=== PATIENT | male | born 1935 | race Caucasian/White ===

== ENCOUNTER 2018-09-13 08:02 | Day surgery (SDC) | payer MEDICARE ==
[~2018-09-13] VITALS: Ht 170.2 cm; Wt 63.5 kg
[2018-09-13] VITALS (8 sets, daily range): BP systolic 101–130; BP diastolic 56–81
[~2018-09-13 08:02] MED LIST: ASPI-1197 PO; ATOR40TA71 PO; CETI10CA8 PO; IRON PO; METO25TA6 PO; SODIUM CHLORIDE 0.9% 1000ML 1,000 ML IV ONE; TRIA1TAB3 PO; TYLENOL PM PO; VITAMIN B12 PO; WARF-57 PO
[2018-09-13] MEDS ORDERED: FERR-82 PO (08:42)
[2018-09-13] MEDS ORDERED: METO50TA18 PO (08:42)
[2018-09-13] MEDS ORDERED: ATOR20TA65 PO (08:42)
[2018-09-13] MEDS ORDERED: APIX2.5T PO (08:42)
[2018-09-13] MEDS ORDERED: PROPOFOL 10 MG/ML 20ML VIAL IV ONE (10:14)
[2018-09-13] MEDS ORDERED: EPHEDRINE SULFATE 50 MG/ML AMPULE ONE (10:29)
[2018-09-13] MEDS ORDERED: PHENYLEPHRINE HCL 10 MG/ML 1ML VIAL IV ONE (10:45)
== END 2018-09-13 11:50 | disposition home or self-care (01) ==
LOC: ENDO 08:02 → DAH 08:02 → ENDO 11:50
PROVIDERS: ATTEND Internal Medicine
DX: D12.0 Benign neoplasm of cecum (principal); D12.3 Benign neoplasm of transverse colon; D12.2 Benign neoplasm of ascending colon; K57.30 Diverticulosis of large intestine without perforation or abscess without bleeding; K29.50 Unspecified chronic gastritis without bleeding; K44.9 Diaphragmatic hernia without obstruction or gangrene; K20.9 Esophagitis, unspecified; K31.89 Other diseases of stomach and duodenum; D50.9 Iron deficiency anemia, unspecified; R12 Heartburn; K64.0 First degree hemorrhoids; E78.5 Hyperlipidemia, unspecified; I25.10 Atherosclerotic heart disease of native coronary artery without angina pectoris; Z79.01 Long term (current) use of anticoagulants; Z79.899 Other long term (current) drug therapy; Z85.828 Personal history of other malignant neoplasm of skin; Z95.0 Presence of cardiac pacemaker; Z98.890 Other specified postprocedural states
CPT/HCPCS: 43239; 45380; 45381; 45385; 88305; 88342; 93005; A4606; J2370; J2704; J3490; J7030; 45384

== ENCOUNTER → 2019-01-19 | Outpatient (CLI) | payer MEDICARE ==
[~2019-01-19] MED LIST changes: +ALLERGY RELIEF; +APIX2.5T PO; -ASPI-1197 PO; +ATOR20TA65 PO; -ATOR40TA71 PO; -CETI10CA8 PO; +FERR-82 PO; -IRON PO; -METO25TA6 PO; +METO50TA18 PO; -SODIUM CHLORIDE 0.9% 1000ML 1,000 ML IV ONE; -TYLENOL PM PO; -WARF-57 PO
== END | disposition home or self-care (01) ==
LOC: RAH 08:42
PROVIDERS: ATTEND Nurse Practitioner Adult Health
DX: N64.4 Mastodynia (principal); N63.10 Unspecified lump in the right breast, unspecified quadrant
CPT/HCPCS: 76641

== ENCOUNTER 2019-02-10 07:56 | Day surgery (SDC) | payer MEDICARE ==
[~2019-02-10] VITALS: Ht 170.2 cm; Wt 64.4 kg
[~2019-02-10 07:56] MED LIST changes: -METO50TA18 PO; +SODIUM CHLORIDE 0.9% 1000ML 1,000 ML IV ONE
[2019-02-10 08:57] VITALS: BP 114/61
[2019-02-10] MEDS ORDERED: PROPOFOL 10 MG/ML 20ML VIAL IV ONE (10:43)
[2019-02-10 11:10] VITALS: BP 96/49
[2019-02-10 11:15] VITALS: BP 99/57
[2019-02-10 11:20] VITALS: BP 101/58
[2019-02-10 11:25] VITALS: BP 103/58
[2019-02-10 11:30] VITALS: BP 107/57
== END 2019-02-10 11:35 | disposition home or self-care (01) ==
LOC: ENDO 07:56 → DAH 07:56 → ENDO 11:35
PROVIDERS: ATTEND Internal Medicine Gastroenterology
DX: D12.2 Benign neoplasm of ascending colon (principal); K62.0 Anal polyp; K57.30 Diverticulosis of large intestine without perforation or abscess without bleeding; K64.0 First degree hemorrhoids; K44.9 Diaphragmatic hernia without obstruction or gangrene; E78.5 Hyperlipidemia, unspecified; I25.10 Atherosclerotic heart disease of native coronary artery without angina pectoris; D50.9 Iron deficiency anemia, unspecified; Z79.01 Long term (current) use of anticoagulants; Z79.899 Other long term (current) drug therapy; Z85.828 Personal history of other malignant neoplasm of skin; Z90.49 Acquired absence of other specified parts of digestive tract; Z95.0 Presence of cardiac pacemaker
CPT/HCPCS: 45380; 45385; 88305; A4215; A4221; A4222; A4223; A4606; A4615; A4663; J2704; J7030

== ENCOUNTER → 2020-01-05 | Outpatient (CLI) | payer MEDICARE ==
[~2020-01-05] MED LIST changes: -SODIUM CHLORIDE 0.9% 1000ML 1,000 ML IV ONE
== END | disposition home or self-care (01) ==
LOC: SHCH 14:01
PROVIDERS: ATTEND Internal Medicine Cardiovascular Disease
DX: R06.02 Shortness of breath (principal)
CPT/HCPCS: 93306; 93356

== ENCOUNTER 2021-07-24 20:58 | Emergency (ER) | payer MEDICARE ==
[~2021-07-24] VITALS: Ht 167.6 cm; Wt 65.8 kg
[~2021-07-24 20:58] MED LIST changes: +DOCU100C33 PO; -FERR-82 PO; +FERR324T12 PO; +LIDOP TP
[2021-07-24 21:27] VITALS: BP 112/57
[2021-07-24] MEDS ORDERED: ACETAMINOPHEN 500 MG TABLET PO ONE (22:00)
[2021-07-24] MEDS ORDERED: CLINDAMYCIN 150 MG CAP PO ONE (22:00)
[2021-07-24 22:11] LABS: BASOPHILS % (AUTO) 0.5 % (0.0-5.0); EOSINOPHILS % (AUTO) 3.6 % (0.0-8.0); HEMATOCRIT 34.3 % (42-54); LYMPHOCYTES % (AUTO) 10.7 % (21.0-51.0); MEAN CORPUSCULAR HEMOGLOBIN 27.4 pg (27.0-33.0); MEAN CORPUSCULAR HGB CONC 32.4 g/dL (32.0-36.0); MEAN CORPUSCULAR VOLUME 84.7 fL (79-99); MONOCYTES % (AUTO) 11.9 % (3.0-13.0); NEUTROPHILS % (AUTO) 72.8 % (40.0-77.0); PLATELET COUNT (AUTO) 210 K/uL (130-400); RED BLOOD CELL COUNT(AUTO) 4.05 MIL/uL (4.50-6.20); RED CELL DISTRIBUTION WIDTH 13.9 % (11.0-15.5); WHITE BLOOD COUNT (AUTO) 9.2 K/uL (4.8-10.8)
[2021-07-24 22:28] LABS: CREATININE 1.6 mg/dL (0.5-1.5)
[2021-07-24] MEDS ORDERED: CEPHALEXIN 500 MG CAPSULE ONE (22:28)
[2021-07-24 22:32] LABS: ALBUMIN 3.6 g/dL (3.5-5.0); BILIRUBIN,TOTAL 1.6 mg/dL (0.2-1.0); TOTAL PROTEIN, SERUM 7.4 g/dL (6.0-8.3)
[2021-07-24] MEDS ORDERED: ACET-2247 PO (23:19)
[2021-07-24] MEDS ORDERED: CEPH500B PO (23:19)
== END 2021-07-24 23:44 | disposition home or self-care (01) ==
LOC: EDH 20:58
DX: S80.12XA Contusion of left lower leg, initial encounter (principal); L03.116 Cellulitis of left lower limb; N28.9 Disorder of kidney and ureter, unspecified; E11.9 Type 2 diabetes mellitus without complications; I10 Essential (primary) hypertension; I25.10 Atherosclerotic heart disease of native coronary artery without angina pectoris; Z79.01 Long term (current) use of anticoagulants; Z79.899 Other long term (current) drug therapy; Z90.49 Acquired absence of other specified parts of digestive tract; Z95.0 Presence of cardiac pacemaker; Z95.1 Presence of aortocoronary bypass graft; W18.39XA Other fall on same level, initial encounter; Y93.89 Activity, other specified; Y92.89 Other specified places as the place of occurrence of the external cause; Y99.8 Other external cause status
CPT/HCPCS: 36415; 73590; 80053; 83605; 85025; 93971

== ENCOUNTER → 2021-08-22 | Outpatient (CLI) | payer MEDICARE ==
[~2021-08-22] MED LIST changes: +ACET-2247 PO; +CEPH500B PO
== END | disposition home or self-care (01) ==
LOC: RAH 10:09
PROVIDERS: ATTEND Nurse Practitioner Adult Health
DX: J44.9 Chronic obstructive pulmonary disease, unspecified (principal); R06.02 Shortness of breath; J90 Pleural effusion, not elsewhere classified
CPT/HCPCS: 71046

== ENCOUNTER → 2021-09-04 | Outpatient (CLI) | payer MEDICARE ==
[2021-09-04 12:43] LABS: APPEARANCE,URINE Clear (CLEAR); BILIRUBIN,URINE Negative (NEGATIVE); COLOR,URINE Yellow (YELLOW); GLUCOSE, URINE (UA) Negative (NEGATIVE); KETONES,URINE Negative (NEGATIVE); LEUKOCYTE ESTERASE ,URINE Negative (NEGATIVE); NITRATE,URINE Negative (NEGATIVE); OCCULT BLOOD,URINE Negative (NEGATIVE); PH,URINE 5.5 (5.0-8.0); PROTEIN,URINE POS 1+ mg/dL (NEGATIVE)
[2021-09-04 12:58] LABS: T4 (THYROXINE) 10.7 ug/dL (4.7-13.3); THYROID STIMULATING HORMONE 3.6 uIU/mL (0.36-3.74)
[2021-09-04 13:09] LABS: RBC,URINE 0-1 /HPF (0-1); WBC,URINE 0-1 /HPF (0-1)
[2021-09-04 13:10] LABS: BACTERIA,URINE None Seen /HPF (None Seen); COARSE GRANULAR CASTS,URINE 0-2 /LPF (None Seen); SQUAMOUS EPITHELIAL CELL,UR 0-2 /HPF (0-2)
== END | disposition home or self-care (01) ==
LOC: LAB 08:48
PROVIDERS: ATTEND Internal Medicine Cardiovascular Disease
DX: I48.0 Paroxysmal atrial fibrillation (principal); I10 Essential (primary) hypertension; I50.32 Chronic diastolic (congestive) heart failure
CPT/HCPCS: 36415; 81001; 83880; 84436; 84443

== ENCOUNTER → 2022-03-10 | Outpatient (CLI) | payer MEDICARE ==
[~2022-03-10] MED LIST changes: -ACET-2247 PO; -ALLERGY RELIEF; +ALLERGY RELIEF PO; -CEPH500B PO; +ERGO400C PO; -LIDOP TP; +OMEP40CA21 PO; -TRIA1TAB3 PO
[2022-03-10 13:12] LABS: CREATININE 1.8 mg/dL (0.5-1.5); POTASSIUM 4.3 mmol/L (3.5-5.1)
== END | disposition home or self-care (01) ==
LOC: LAB 10:33
PROVIDERS: ATTEND Internal Medicine Cardiovascular Disease
DX: I50.32 Chronic diastolic (congestive) heart failure (principal)
CPT/HCPCS: 36415; 80048; 83880

== ENCOUNTER 2022-03-24 15:30 | Emergency (ER) | payer MEDICARE ==
[~2022-03-24] VITALS: Ht 152.4 cm; Wt 59.0 kg
[2022-03-24 17:22] VITALS: BP 159/71
== END 2022-03-24 17:22 | disposition home or self-care (01) ==
LOC: EDH 15:30
DX: S09.90XA Unspecified injury of head, initial encounter (principal); S41.112A Laceration without foreign body of left upper arm, initial encounter; E78.00 Pure hypercholesterolemia, unspecified; I48.91 Unspecified atrial fibrillation; Z79.01 Long term (current) use of anticoagulants; Z95.1 Presence of aortocoronary bypass graft; Z95.810 Presence of automatic (implantable) cardiac defibrillator; Z90.49 Acquired absence of other specified parts of digestive tract; W18.39XA Other fall on same level, initial encounter; Y93.89 Activity, other specified; Y92.89 Other specified places as the place of occurrence of the external cause; Y99.8 Other external cause status
CPT/HCPCS: 70450; 72125

== ENCOUNTER 2022-07-25 08:37 | Inpatient (IN) | payer MEDICARE ==
[~2022-07-25] VITALS: Ht 167.6 cm; Wt 61.4 kg
[2022-07-25 09:01] LABS: BASOPHILS % (AUTO) 0.3 % (0.0-5.0); EOSINOPHILS % (AUTO) 0.1 % (0.0-8.0); HEMATOCRIT 37.6 % (42-54); LYMPHOCYTES % (AUTO) 7.7 % (21.0-51.0); MEAN CORPUSCULAR HEMOGLOBIN 27.9 pg (27.0-33.0); MEAN CORPUSCULAR HGB CONC 32.2 g/dL (32.0-36.0); MEAN CORPUSCULAR VOLUME 86.6 fL (79-99); MONOCYTES % (AUTO) 8.2 % (3.0-13.0); NEUTROPHILS % (AUTO) 83.3 % (40.0-77.0); PLATELET COUNT (AUTO) 162 K/uL (130-400); RED BLOOD CELL COUNT(AUTO) 4.34 MIL/uL (4.50-6.20); RED CELL DISTRIBUTION WIDTH 14.5 % (11.0-15.5); WHITE BLOOD COUNT (AUTO) 9.2 K/uL (4.8-10.8)
[2022-07-25 09:22] LABS: CREATININE 1.9 mg/dL (0.5-1.5); POTASSIUM 3.6 mmol/L (3.5-5.1)
[2022-07-25 09:28] LABS: TOTAL PROTEIN, SERUM 6.8 g/dL (6.0-8.3)
[2022-07-25] MEDS ORDERED: CEFTRIAXONE 1G VIAL IVPB ONE (11:30)
[2022-07-25] MEDS ORDERED: AZITHROMYCIN 500MG+NS 250ML IVPB SCH (11:30)
[2022-07-25] MEDS: BUDESONIDE 0.5 MG/2 ML INH IH SCH ×2 (12:00→15:41)
[2022-07-25] MEDS ORDERED: PANTOPRAZOLE 40 MG TAB DR PO SCH (12:00)
[2022-07-25 12:18] LABS: INR 1.01 (0.85-1.15)
[2022-07-25 12:20] LABS: PARTIAL THROMBOPLASTIN TIME 35.5 SEC (26.3-35.5)
[2022-07-25 12:22] LABS: HEMOGLOBIN A1C 5.1 % (4.0-6.0)
[2022-07-25] MEDS ORDERED: ACETAMINOPHEN 500 MG TABLET PO PRN (12:30)
[2022-07-25] MEDS ORDERED: ONDANSETRON 4MG INJ IVP PRN (12:30)
[2022-07-25] MEDS ORDERED: Vitamin B Complex/Vit C/Folic Acid PO SCH (12:30)
[2022-07-25 12:38] LABS: CRP QUANTITATIVE 104.9 mg/L (0.00-9.0); THYROID STIMULATING HORMONE 3.07 uIU/mL (0.36-3.74)
[2022-07-25] MEDS ORDERED: TORS20TA4 PO (13:31)
[2022-07-25] MEDS ORDERED: SERT-438 PO (13:32)
[2022-07-25] MEDS: CEFEPIME HCL 2 GM VIAL IVPB SCH (13:43)
[2022-07-25] MEDS ORDERED: SODIUM CHLORIDE 3% FOR INHALATION 4 ML/AMP VIAL.NEB IH ONE ×2 (14:56→18:38)
[2022-07-25 15:22] LABS: ABG BASE EXCESS 0.2 mmol/L (-2.0-3.0); ABG HCO3 23.7 mmol/L (21.0-28.0); ABG OXYGEN SATURATION 98.5 % (95.0-99.0); ABG PCO2 35 mmHg (35-48)
[2022-07-25] MEDS: SOLU-MEDROL 40MG VIAL IVP SCH ×2 (15:30→21:52)
[2022-07-25] MEDS: IPRATROPIUM 0.5 MG/2.5 ML INH IH PRN ×2 (15:40→19:43)
[2022-07-25 16:21] VITALS: BP 114/67
[2022-07-25 19:06] VITALS: BP 99/58
[2022-07-25] MEDS: APIXABAN 2.5 MG TABLET PO SCH (21:52)
[2022-07-25] MEDS: SERTRALINE HCL 50 MG TABLET PO SCH (21:52)
[2022-07-25] MEDS: ATORVASTATIN 40 MG TABLET PO SCH (21:52)
[2022-07-26 00:06] VITALS: BP 114/71
[2022-07-26 03:06] VITALS: BP 119/67
[2022-07-26 04:12] LABS: BASOPHILS % (AUTO) 0.2 % (0.0-5.0); HEMATOCRIT 37.9 % (42-54); LYMPHOCYTES % (AUTO) 8.1 % (21.0-51.0); MEAN CORPUSCULAR HEMOGLOBIN 27.6 pg (27.0-33.0); MEAN CORPUSCULAR HGB CONC 31.1 g/dL (32.0-36.0); MEAN CORPUSCULAR VOLUME 88.6 fL (79-99); MONOCYTES % (AUTO) 2.7 % (3.0-13.0); NEUTROPHILS % (AUTO) 88.5 % (40.0-77.0); PLATELET COUNT (AUTO) 151 K/uL (130-400); RED BLOOD CELL COUNT(AUTO) 4.28 MIL/uL (4.50-6.20); RED CELL DISTRIBUTION WIDTH 14.2 % (11.0-15.5); WHITE BLOOD COUNT (AUTO) 4.1 K/uL (4.8-10.8)
[2022-07-26 04:24] LABS: ALBUMIN 2.8 g/dL (3.5-5.0); CREATININE 1.7 mg/dL (0.5-1.5); CRP QUANTITATIVE 79.4 mg/L (0.00-9.0); MAGNESIUM 2.3 mg/dL (1.80-2.40); POTASSIUM 3.9 mmol/L (3.5-5.1); TOTAL PROTEIN, SERUM 6.4 g/dL (6.0-8.3)
[2022-07-26] MEDS: BUDESONIDE 0.5 MG/2 ML INH IH SCH ×2 (07:01→19:27)
[2022-07-26 07:34] VITALS: BP 119/68
[2022-07-26] MEDS: APIXABAN 2.5 MG TABLET PO SCH ×2 (08:18→20:40)
[2022-07-26] MEDS: DOCUSATE SODIUM 100 MG CAP PO SCH (08:18)
[2022-07-26] MEDS: PANTOPRAZOLE 40 MG TAB DR PO SCH (08:18)
[2022-07-26] MEDS: CHOLECALCIFEROL 1000 MG PO SCH (08:18)
[2022-07-26] MEDS: FERROUS FUMARATE 324 MG TABLET PO SCH (08:18)
[2022-07-26] MEDS: SOLU-MEDROL 40MG VIAL IVP SCH ×2 (08:18→20:40)
[2022-07-26] MEDS: AZITHROMYCIN 250 MG TABLET PO SCH (08:18)
[2022-07-26] MEDS: CYANOCOBALAMIN (VITAMIN B-12) 1,000 MCG TABLET PO SCH (08:18)
[2022-07-26] MEDS: Vitamin B Complex/Vit C/Folic Acid PO SCH (08:18)
[2022-07-26] MEDS ORDERED: ENOXAPARIN SODIUM 30 MG/0.3 ML SQ SCH (09:00)
[2022-07-26] MEDS ORDERED: FUROSEMIDE 20MG VIAL IV SCH (09:30)
[2022-07-26] MEDS: CEFEPIME HCL 2 GM VIAL IVPB SCH (11:29)
[2022-07-26] MEDS: FUROSEMIDE 20MG VIAL IV SCH ×2 (11:30→20:54)
[2022-07-26 11:33] VITALS: BP 107/53
[2022-07-26] MEDS: IPRATROPIUM 0.5 MG/2.5 ML INH IH SCH ×3 (12:09→23:42)
[2022-07-26] MEDS ORDERED: ALBUTEROL 0.083% 2.5 MG/3 ML INH IH SCH (14:00)
[2022-07-26 15:38] VITALS: BP 103/60
[2022-07-26] MEDS ORDERED: GUAIFENESIN-DM 200/20 MG 10 ML PO PRN (17:30)
[2022-07-26] MEDS: ALBUTEROL 0.083% 2.5 MG/3 ML INH IH SCH ×2 (18:59→23:42)
[2022-07-26 19:06] VITALS: BP 94/49
[2022-07-26] MEDS: ATORVASTATIN 40 MG TABLET PO SCH (20:40)
[2022-07-26] MEDS: SERTRALINE HCL 50 MG TABLET PO SCH (20:41)
[2022-07-27] VITALS (8 sets, daily range): BP systolic 93–117; BP diastolic 53–66
[2022-07-27 05:00] LABS: CREATININE 2.2 mg/dL (0.5-1.5); POTASSIUM 3.1 mmol/L (3.5-5.1)
[2022-07-27] MEDS ORDERED: KCL 20 MEQ ERTAB PO PRN (06:00)
[2022-07-27] MEDS ORDERED: MAGNESIUM 2GM PREMIX 50ML 50 ML IV SCH (06:00)
[2022-07-27] MEDS ORDERED: POTASSIUM CHLORIDE 10MEQ/100ML 100 ML IV PRN (06:00)
[2022-07-27] MEDS: POTASSIUM CHLORIDE 10% ELIXIR 20 MEQ/15 ML UDCUP PO PRN ×3 (06:21→11:37)
[2022-07-27] MEDS: ALBUTEROL 0.083% 2.5 MG/3 ML INH IH SCH ×3 (06:54→19:34)
[2022-07-27] MEDS: BUDESONIDE 0.5 MG/2 ML INH IH SCH ×2 (06:55→19:35)
[2022-07-27] MEDS: IPRATROPIUM 0.5 MG/2.5 ML INH IH SCH ×3 (06:55→19:35)
[2022-07-27] MEDS: CHOLECALCIFEROL 1000 MG PO SCH (09:00)
[2022-07-27] MEDS: SOLU-MEDROL 40MG VIAL IVP SCH ×2 (09:41→21:12)
[2022-07-27] MEDS: FERROUS FUMARATE 324 MG TABLET PO SCH (09:41)
[2022-07-27] MEDS: Vitamin B Complex/Vit C/Folic Acid PO SCH (09:41)
[2022-07-27] MEDS: PANTOPRAZOLE 40 MG TAB DR PO SCH (09:41)
[2022-07-27] MEDS: APIXABAN 2.5 MG TABLET PO SCH ×2 (09:41→21:11)
[2022-07-27] MEDS: CYANOCOBALAMIN (VITAMIN B-12) 1,000 MCG TABLET PO SCH (09:41)
[2022-07-27] MEDS: DOCUSATE SODIUM 100 MG CAP PO SCH (09:42)
[2022-07-27] MEDS: FUROSEMIDE 20MG VIAL IV SCH (09:42)
[2022-07-27] MEDS: AZITHROMYCIN 250 MG TABLET PO SCH (09:42)
[2022-07-27] MEDS: CEFEPIME HCL 2 GM VIAL IVPB SCH (11:37)
[2022-07-27] MEDS: ATORVASTATIN 40 MG TABLET PO SCH (21:00)
[2022-07-27] MEDS: SERTRALINE HCL 50 MG TABLET PO SCH (21:00)
[2022-07-28] MEDS: IPRATROPIUM 0.5 MG/2.5 ML INH IH SCH ×5 (00:21→23:57)
[2022-07-28] MEDS: ALBUTEROL 0.083% 2.5 MG/3 ML INH IH SCH ×5 (00:21→23:57)
[2022-07-28 04:33] VITALS: BP 107/58
[2022-07-28] MEDS: BUDESONIDE 0.5 MG/2 ML INH IH SCH ×2 (06:56→19:59)
[2022-07-28 08:00] VITALS: BP 104/53
[2022-07-28] MEDS ORDERED: TORS20TA4 PO (08:25)
[2022-07-28 08:30] LABS: APPEARANCE,URINE CLEAR (CLEAR); BILIRUBIN,URINE NEGATIVE (NEGATIVE); COLOR,URINE LIGHT-YELLOW (YELLOW); GLUCOSE, URINE (UA) NEGATIVE (NEGATIVE); KETONES,URINE NEGATIVE (NEGATIVE); LEUKOCYTE ESTERASE ,URINE NEGATIVE Leu/uL (NEGATIVE); NITRATE,URINE NEGATIVE (NEGATIVE); OCCULT BLOOD,URINE SMALL (NEGATIVE); PH,URINE 5.5 (5.0-8.0); PROTEIN,URINE 30 mg/dL (NEGATIVE); UROBILINOGEN,URINE 0.2 mg/dL (0.2-1.0)
[2022-07-28 08:33] LABS: CREATININE,URINE RANDOM 84 mg/dL (30-135); SODIUM,URINE RANDOM < 14 mmol/l (40-220)
[2022-07-28 08:36] LABS: BACTERIA,URINE RARE /HPF (None Seen); MUCUS,URINE RARE LPF (None Seen); OTHER CASTS, URINE 1 /LPF (None Seen); SQUAMOUS EPITHELIAL CELL,UR RARE /HPF (0-2); WBC,URINE 0-1 /HPF (0-1)
[2022-07-28] MEDS: SOLU-MEDROL 40MG VIAL IVP SCH ×2 (08:43→20:42)
[2022-07-28] MEDS: CYANOCOBALAMIN (VITAMIN B-12) 1,000 MCG TABLET PO SCH (09:00)
[2022-07-28] MEDS: TORSEMIDE 20 MG TAB PO SCH (09:00)
[2022-07-28] MEDS: AZITHROMYCIN 250 MG TABLET PO SCH (09:00)
[2022-07-28] MEDS: CHOLECALCIFEROL 1000 MG PO SCH (09:00)
[2022-07-28] MEDS: FERROUS FUMARATE 324 MG TABLET PO SCH (09:00)
[2022-07-28] MEDS: PANTOPRAZOLE 40 MG TAB DR PO SCH (09:00)
[2022-07-28] MEDS: Vitamin B Complex/Vit C/Folic Acid PO SCH (09:00)
[2022-07-28] MEDS: APIXABAN 2.5 MG TABLET PO SCH ×2 (09:00→20:42)
[2022-07-28] MEDS: DOCUSATE SODIUM 100 MG CAP PO SCH (09:00)
[2022-07-28 11:22] VITALS: BP 104/57
[2022-07-28] MEDS: CEFEPIME HCL 2 GM VIAL IVPB SCH (12:55)
[2022-07-28 13:22] LABS: HEMATOCRIT 35.5 % (42-54); MEAN CORPUSCULAR HEMOGLOBIN 27.8 pg (27.0-33.0); MEAN CORPUSCULAR HGB CONC 32.4 g/dL (32.0-36.0); MEAN CORPUSCULAR VOLUME 85.7 fL (79-99); RED BLOOD CELL COUNT(AUTO) 4.14 MIL/uL (4.50-6.20); RED CELL DISTRIBUTION WIDTH 13.9 % (11.0-15.5); WHITE BLOOD COUNT (AUTO) 21.2 K/uL (4.8-10.8)
[2022-07-28 13:35] LABS: POTASSIUM 3.4 mmol/L (3.5-5.1)
[2022-07-28 15:50] VITALS: BP 96/45
[2022-07-28 20:34] VITALS: BP 118/54
[2022-07-28] MEDS: SERTRALINE HCL 50 MG TABLET PO SCH (20:42)
[2022-07-28] MEDS: POTASSIUM CHLORIDE 10% ELIXIR 20 MEQ/15 ML UDCUP PO PRN (20:42)
[2022-07-29 00:18] VITALS: BP 114/59
[2022-07-29 04:32] VITALS: BP 109/66
[2022-07-29] MEDS: BUDESONIDE 0.5 MG/2 ML INH IH SCH ×2 (06:00→07:21)
[2022-07-29 06:21] LABS: CREATININE 2.1 mg/dL (0.5-1.5); POTASSIUM 4.2 mmol/L (3.5-5.1)
[2022-07-29] MEDS: ALBUTEROL 0.083% 2.5 MG/3 ML INH IH SCH ×2 (07:16→11:29)
[2022-07-29] MEDS: IPRATROPIUM 0.5 MG/2.5 ML INH IH SCH ×2 (07:17→11:29)
[2022-07-29 07:36] VITALS: BP 107/56
[2022-07-29] MEDS: CHOLECALCIFEROL 1000 MG PO SCH (09:00)
[2022-07-29] MEDS: SOLU-MEDROL 40MG VIAL IVP SCH (09:51)
[2022-07-29] MEDS: FERROUS FUMARATE 324 MG TABLET PO SCH (09:52)
[2022-07-29] MEDS: APIXABAN 2.5 MG TABLET PO SCH (09:52)
[2022-07-29] MEDS: CYANOCOBALAMIN (VITAMIN B-12) 1,000 MCG TABLET PO SCH (09:52)
[2022-07-29] MEDS: Vitamin B Complex/Vit C/Folic Acid PO SCH (09:52)
[2022-07-29] MEDS: PANTOPRAZOLE 40 MG TAB DR PO SCH (09:53)
[2022-07-29] MEDS: DOCUSATE SODIUM 100 MG CAP PO SCH (09:53)
[2022-07-29] MEDS: TORSEMIDE 20 MG TAB PO SCH (09:53)
[2022-07-29] MEDS: AZITHROMYCIN 250 MG TABLET PO SCH (09:53)
[2022-07-29 11:09] VITALS: BP 98/38
[2022-07-29 16:19] VITALS: BP 101/41
[2022-07-29] MEDS: CEFEPIME HCL 2 GM VIAL IVPB SCH (16:40)
[2022-07-30] MEDS ORDERED: PREDNISONE 20 MG TABLET PO SCH (09:00)
== END 2022-07-29 16:45 | DRG 193 ==
LOC: EDH 08:37 → EDHIP 11:52 → 2DH 16:09 → 3DH 07-27 13:20
PROVIDERS: ADMIT Internal Medicine; ATTEND Internal Medicine
PROC: 5A09357 Assistance with Respiratory Ventilation, Less than 24 Consecutive Hours, Continuous Positive Airway Pressure (ICD-10-PCS; principal; 2022-07-25)
PROC: 5A09357 Assistance with Respiratory Ventilation, Less than 24 Consecutive Hours, Continuous Positive Airway Pressure (ICD-10-PCS; 2022-07-26)
PROC: 5A09357 Assistance with Respiratory Ventilation, Less than 24 Consecutive Hours, Continuous Positive Airway Pressure (ICD-10-PCS; 2022-07-27)
PROC: 5A09357 Assistance with Respiratory Ventilation, Less than 24 Consecutive Hours, Continuous Positive Airway Pressure (ICD-10-PCS; 2022-07-28)
PROC: 5A09357 Assistance with Respiratory Ventilation, Less than 24 Consecutive Hours, Continuous Positive Airway Pressure (ICD-10-PCS; 2022-07-29)
DX: J18.9 Pneumonia, unspecified organism (principal); I21.A1 Myocardial infarction type 2; J96.01 Acute respiratory failure with hypoxia; I50.33 Acute on chronic diastolic (congestive) heart failure; N17.9 Acute kidney failure, unspecified; I48.20 Chronic atrial fibrillation, unspecified; I42.2 Other hypertrophic cardiomyopathy; N18.30 Chronic kidney disease, stage 3 unspecified; I25.10 Atherosclerotic heart disease of native coronary artery without angina pectoris; E78.00 Pure hypercholesterolemia, unspecified; J84.112 Idiopathic pulmonary fibrosis; E11.22 Type 2 diabetes mellitus with diabetic chronic kidney disease; R29.6 Repeated falls; R54 Age-related physical debility; G47.33 Obstructive sleep apnea (adult) (pediatric); Z20.822 Contact with and (suspected) exposure to COVID-19; I07.1 Rheumatic tricuspid insufficiency; J45.909 Unspecified asthma, uncomplicated; Z66 Do not resuscitate; Z79.899 Other long term (current) drug therapy; Z85.46 Personal history of malignant neoplasm of prostate; Z79.01 Long term (current) use of anticoagulants; Z95.1 Presence of aortocoronary bypass graft; Z85.828 Personal history of other malignant neoplasm of skin; Z95.0 Presence of cardiac pacemaker
CPT/HCPCS: 36415; 36600; 70450; 71045; 71250; 74230; 76770; 80048; 80053; 81001; 82550; 82570; 82803; 83036; 83605; 83735; 83874; 83880; 83883; 84132; 84145; 84300; 84443; 84484; 85025; 85027; 85610; 85651; 85730; 86140; 86334; 86738; 87040; 87071; 87205; 87449; 87635; 87804; 87880; 92610; 92611; 93005; 93306; 93356; 94640; 94664; 94667; 94668; 97039; C9803; G0378; J0456; J0692; J1940; J2920

== ENCOUNTER → 2022-08-13 | Outpatient (CLI) | payer MEDICARE ==
[~2022-08-13] MED LIST changes: -ATOR20TA65 PO; +SERT-438 PO; +TORS20TA4 PO
[2022-08-13 12:38] LABS: CREATININE 2.5 mg/dL (0.5-1.5); POTASSIUM 3.1 mmol/L (3.5-5.1)
== END | disposition home or self-care (01) ==
LOC: LAB 11:10
PROVIDERS: ATTEND Nurse Practitioner Acute Care
DX: I50.32 Chronic diastolic (congestive) heart failure (principal)
CPT/HCPCS: 36415; 80048; 83880